=== PATIENT | female | born 1990 | race Two or more races ===

== ENCOUNTER 2018-09-21 10:59 | Emergency (ER) | payer OTHER ==
[~2018-09-21] VITALS: Ht 160 cm; Wt 73.9 kg
[~2018-09-21 10:59] MED LIST: AMOX1TAB12 PO; FLEXERIL10 MG PO; IBUPROFEN800 MG PO; KETO10TA2 PO; PROVERA2.5 MG
== END 2018-09-21 14:33 | disposition home or self-care (01) ==
LOC: ER 10:59
DX: R20.0 Anesthesia of skin (principal); R51 Headache